=== PATIENT | female | born 1995 | race Caucasian/White ===

== ENCOUNTER 2018-06-12 22:48 | Emergency (ER) | payer OTHER ==
[2018-06-12] MEDS: ONDANSETRON (ODT) 4 MG TAB ODT (23:14)
[2018-06-12 23:23] LABS: ADD MAN DIFF? NO
[2018-06-12 23:26] LABS: BASOPHILS % 0.3 % (0.0-2.0); EOSINOPHILS # 0.1 10^3/ul (0.0-0.5); EOSINOPHILS % 0.8 % (0.0-7.0); HEMATOCRIT 40.2 % (37.0-47.0); HEMOGLOBIN 13.7 g/dl (12.0-16.0); LYMPHOCYTES # 2.4 10^3/ul (0.8-2.9); LYMPHOCYTES % 19.6 % (15.0-51.0); MEAN CORPUSCULAR HGB CONC 34.1 g/dl (32.0-37.0); MEAN PLATELET VOLUME 10.4 fl (7.4-10.4); MONOCYTE # 0.9 10^3/ul (0.3-0.9); MONOCYTES % 7.2 % (0.0-11.0); NEUTROPHIL # 8.6 10^3/ul (1.6-7.5); NEUTROPHILS % 71.9 % (39.0-77.0); PLATELET COUNT 289 10^3/UL (140-415); RED BLOOD COUNT 4.57 10^6/ul (4.20-5.40); RED CELL DISTRIBUTION WIDTH 12.5 % (11.5-14.5)
[2018-06-12 23:31] LABS: ADD UMIC YES; UR ASCORBIC ACID NEGATIVE (NEGATIVE); UR BACTERIA FEW /HPF (NONE SEEN); UR BILIRUBIN (Dip) NEGATIVE (NEGATIVE); UR BLOOD (Dip) 1+ mg/dL (NEGATIVE); UR CLARITY SLIGHTLY CLOUDY (CLEAR); UR COLOR YELLOW (YELLOW); UR GLUCOSE (Dip) NEGATIVE (NEGATIVE); UR KETONES (Dip) TRACE mg/dL (NEGATIVE); UR LEUKOCYTE ESTERASE (Dip) 1+ Leu/ul (NEGATIVE); UR MUCUS MODERATE /HPF (NONE SEEN); UR NITRITE (Dip) NEGATIVE (NEGATIVE); UR RBC 8 /HPF (0-5); UR SQUAMOUS EPITHELIAL CELL MODERATE /HPF (FEW); UR TOTAL PROTEIN (Dip) 1+ mg/dl (NEGATIVE); UR UROBILINOGEN (Dip) 1+ mg/dL (NEGATIVE); UR WBC 2 /HPF (0-5)
[2018-06-12 23:53] LABS: ALANINE AMINOTRANSFERASE 16 IU/L (13-69); ALBUMIN 4.4 g/dl (3.3-4.9); ALBUMIN/GLOBULIN RATIO 1.22; ALKALINE PHOSPHATASE 71 IU/L (42-121); AMYLASE 87 U/L (11-123); ANION GAP 14 (5-13); ASPARTATE AMINO TRANSFERASE 26 IU/L (15-46); BILIRUBIN,INDIRECT 0.5 mg/dl (0-1.1); BILIRUBIN,TOTAL 0.5 mg/dl (0.2-1.3); BLOOD UREA NITROGEN 6 mg/dl (7-20); CALCIUM 9.4 mg/dl (8.4-10.2); CARBON DIOXIDE 22 mmol/L (21-31); CHLORIDE 107 mmol/L (97-110); CREATININE 0.66 mg/dl (0.44-1.00); Estimated GFR > 60 mL/min (>60); GLUCOSE 107 mg/dl (70-220); LIPASE 95 U/L (23-300); POTASSIUM 3.8 mmol/L (3.5-5.1); SODIUM 143 mmol/L (135-144)
[2018-06-13] MEDS: HYDROCODONE/APAP (10/325) TAB PO (00:34)
== END 2018-06-13 02:17 | disposition home or self-care (01) ==
LOC: FTE 06-13 02:17
DX: N39.0 Urinary tract infection, site not specified (principal)
CPT/HCPCS: 36415; 74176; 80053; 81001; 81025; 82150; 83690; 85025; 87086; 99284-25

== ENCOUNTER 2018-10-06 14:04 | Inpatient (IN) | payer OTHER ==
[2018-10-06] MEDS: SOD CHLORIDE 0.9% 1,000 ML IV (06:00)
[2018-10-06] MEDS: LACTATED RINGER'S 1,000 ML IV ×2 (06:00→18:21)
[~2018-10-06 14:04] MED LIST: CEFAZOLIN 2 GM/50 ML (PMX) 50 ML (FOR WT < 120 KG) IVPB; GLYCOPYRROLATE 0.4 MG INJ; NEOSTIGMINE 10 MG INJ
[2018-10-06] MEDS ORDERED: ROCURONIUM 50 MG INJ ×2 (14:10→16:48)
[2018-10-06] MEDS ORDERED: FENTAnyl 50 MCG/ML VIAL ×2 (14:10→16:51)
[2018-10-06] MEDS ORDERED: MIDAZOLAM 1 MG/ML 2 ML INJ ×2 (14:10→16:48)
[2018-10-06] MEDS ORDERED: PROPOFOL 0 ML (14:10)
[2018-10-06 14:57] LABS: ADD MAN DIFF? NO
[2018-10-06 14:58] LABS: WHITE BLOOD COUNT 8.6 10^3/ul (4.8-10.8)
[2018-10-06 14:58] LABS: BASOPHILS % 0.5 % (0.0-2.0); EOSINOPHILS # 0.1 10^3/ul (0.0-0.5); EOSINOPHILS % 1.2 % (0.0-7.0); HEMATOCRIT 40.9 % (37.0-47.0); HEMOGLOBIN 13.6 g/dl (12.0-16.0); LYMPHOCYTES # 2.1 10^3/ul (0.8-2.9); MEAN CORPUSCULAR HEMOGLOBIN 30.3 pg (29.0-33.0); MEAN CORPUSCULAR HGB CONC 33.3 g/dl (32.0-37.0); MEAN CORPUSCULAR VOLUME 91.1 fl (82.0-101.0); MEAN PLATELET VOLUME 10.4 fl (7.4-10.4); MONOCYTE # 0.5 10^3/ul (0.3-0.9); MONOCYTES % 5.8 % (0.0-11.0); NEUTROPHIL # 5.7 10^3/ul (1.6-7.5); PLATELET COUNT 282 10^3/UL (140-415); RED BLOOD COUNT 4.49 10^6/ul (4.20-5.40); RED CELL DISTRIBUTION WIDTH 12.5 % (11.5-14.5)
[2018-10-06 15:17] LABS: INR 0.85; PROTIME 11.7 Sec (11.9-14.9); PT RATIO 0.9
[2018-10-06 15:18] LABS: PARTIAL THROMBOPLASTIN TIME 26.6 Sec (23.0-35.0)
[2018-10-06 15:19] LABS: ANION GAP 8 (5-13); BLOOD UREA NITROGEN 11 mg/dl (7-20); CALCIUM 9.2 mg/dl (8.4-10.2); CARBON DIOXIDE 26 mmol/L (21-31); CHLORIDE 106 mmol/L (97-110); CREATININE 0.59 mg/dl (0.44-1.00); GLUCOSE 85 mg/dl (70-220); PHOSPHORUS 3.2 mg/dl (2.5-4.9); SODIUM 140 mmol/L (135-144)
[2018-10-06] MEDS ORDERED: ROPIVACAINE 0.5 % 30 ML VIAL (16:48)
[2018-10-06] MEDS ORDERED: LIDOCAINE 2% (SDV) 5 ML INJ (16:48)
[2018-10-06] MEDS ORDERED: PROPOFOL 20 ML (16:48)
[2018-10-06] MEDS: CEFAZOLIN 2 GM/50 ML (PMX) 50 ML IVPB (17:16)
[2018-10-06] MEDS ORDERED: CEFAZOLIN 1 GM INJ (17:17)
[2018-10-06] MEDS ORDERED: DEXAMETHASONE 4 MG/ML 5 ML INJ (17:18)
[2018-10-06] MEDS ORDERED: FAMOTIDINE 20 MG INJ (17:18)
[2018-10-06] MEDS ORDERED: HYDROmorphONE 2 MG/ML SYG (17:18)
[2018-10-06] MEDS ORDERED: ONDANSETRON 4 MG INJ (17:18)
[2018-10-06] MEDS: BUPIVACAINE 0.5%/EPI (SDV) 30 ML INJ (17:25)
[2018-10-06] MEDS ORDERED: HYDROmorphONE 1 MG/5 ML IV SYRINGE IV ×3 (18:00)
[2018-10-06] MEDS ORDERED: DIPHENHYDRAMINE 50 MG INJ IV ×2 (18:00)
[2018-10-06] MEDS ORDERED: HYDROmorphONE 0.5 MG/0.5 ML SYG IV ×2 (18:00)
[2018-10-06] MEDS ORDERED: FENTAnyl 50 MCG/ML VIAL IV ×3 (18:00)
[2018-10-06] MEDS ORDERED: ONDANSETRON 4 MG INJ IV (18:00)
[2018-10-06] MEDS ORDERED: NALOXONE (0.4 MG/ML) INJ IV (18:00)
[2018-10-06] MEDS ORDERED: PROCHLORPERAZINE 10 MG INJ IV (18:00)
[2018-10-06] MEDS ORDERED: KETOROLAC 30 MG INJ (18:16)
[2018-10-06] MEDS: ONDANSETRON 4 MG INJ IV (18:54)
[2018-10-06] MEDS: MEPERIDINE 25 MG INJ IV (18:55)
[2018-10-06] MEDS: KETOROLAC 30 MG INJ IM (18:57)
[2018-10-06] MEDS: KETOROLAC 60 MG INJ IM (18:57)
[2018-10-06] MEDS: BUTORPHANOL 2 MG INJ IM (18:59)
[2018-10-06] MEDS: HYDROmorphONE 0.2 MG/ML PCA IV (19:15)
[2018-10-07] MEDS: LACTATED RINGER'S 1,000 ML IV ×5 (04:21→19:13)
[2018-10-07] MEDS: SOD CHLORIDE 0.9% 1,000 ML IV (06:00)
[2018-10-07] MEDS ORDERED: PROPOFOL 200 MG INJ (07:00)
[2018-10-07] MEDS: KETOROLAC 30 MG INJ IV (07:30)
[2018-10-07] MEDS: HYDROmorphONE 0.2 MG/ML PCA IV ×2 (07:55→15:42)
[2018-10-07] MEDS: ONDANSETRON 4 MG INJ IV ×3 (08:39→20:52)
[2018-10-07] MEDS ORDERED: OXYCODONE/ACETAMINOPHEN (5/325) TAB PO (09:30)
[2018-10-07] MEDS ORDERED: HYDROCODONE/APAP (10/325) TAB PO (09:30)
[2018-10-07 10:15] LABS: ADD MAN DIFF? NO
[2018-10-07 10:15] LABS: WHITE BLOOD COUNT 20.5 10^3/ul (4.8-10.8)
[2018-10-07 10:16] LABS: ABNORMAL IP MESSAGE 1; BASOPHILS % 0.2 % (0.0-2.0); HEMATOCRIT 38.4 % (37.0-47.0); HEMOGLOBIN 12.9 g/dl (12.0-16.0); LYMPHOCYTES # 1.2 10^3/ul (0.8-2.9); LYMPHOCYTES % 6.1 % (15.0-51.0); MEAN CORPUSCULAR HEMOGLOBIN 30.4 pg (29.0-33.0); MEAN CORPUSCULAR HGB CONC 33.6 g/dl (32.0-37.0); MEAN CORPUSCULAR VOLUME 90.6 fl (82.0-101.0); MEAN PLATELET VOLUME 10.5 fl (7.4-10.4); MONOCYTE # 1.6 10^3/ul (0.3-0.9); MONOCYTES % 7.8 % (0.0-11.0); NEUTROPHIL # 17.4 10^3/ul (1.6-7.5); NEUTROPHILS % 85.1 % (39.0-77.0); PLATELET COUNT 267 10^3/UL (140-415); RED BLOOD COUNT 4.24 10^6/ul (4.20-5.40); RED CELL DISTRIBUTION WIDTH 12.3 % (11.5-14.5)
[2018-10-07] MEDS: SENNA TAB PO ×2 (10:18→20:51)
[2018-10-07] MEDS: IBUPROFEN 600 MG TAB PO ×3 (10:18→20:52)
[2018-10-07 10:21] LABS: POSITIVE DIFF @See below
[2018-10-07] MEDS: BISACODYL 10 MG SUPP PR (11:11)
[2018-10-07] MEDS: CLINDAMYCIN 300 MG CAP PO ×3 (11:11→20:52)
[2018-10-07] MEDS: CEFAZOLIN 2 GM/50 ML (PMX) 50 ML IVPB ×2 (11:11→21:20)
[2018-10-07] MEDS: CIPROFLOXACIN 500 MG TAB PO (18:16)
[2018-10-07] MEDS: HYDROCODONE/APAP (5/325) TAB PO (18:16)
[2018-10-07] MEDS ORDERED: CEFAZOLIN 2 GM/50 ML (PMX) 50 ML IVPB ×2 (19:00→22:00)
[2018-10-08] MEDS: CLINDAMYCIN 300 MG CAP PO ×4 (03:19→20:29)
[2018-10-08] MEDS: IBUPROFEN 600 MG TAB PO ×4 (03:20→20:30)
[2018-10-08] MEDS: LACTATED RINGER'S 1,000 ML IV ×3 (05:13→20:32)
[2018-10-08 05:24] LABS: ADD MAN DIFF? NO
[2018-10-08 05:32] LABS: WHITE BLOOD COUNT 11.6 10^3/ul (4.8-10.8)
[2018-10-08 05:32] LABS: BASOPHILS % 0.3 % (0.0-2.0); EOSINOPHILS # 0.1 10^3/ul (0.0-0.5); EOSINOPHILS % 0.5 % (0.0-7.0); HEMATOCRIT 35.2 % (37.0-47.0); HEMOGLOBIN 11.7 g/dl (12.0-16.0); LYMPHOCYTES # 2.7 10^3/ul (0.8-2.9); LYMPHOCYTES % 23.4 % (15.0-51.0); MEAN CORPUSCULAR HEMOGLOBIN 30.3 pg (29.0-33.0); MEAN CORPUSCULAR HGB CONC 33.2 g/dl (32.0-37.0); MEAN CORPUSCULAR VOLUME 91.2 fl (82.0-101.0); NEUTROPHIL # 7.7 10^3/ul (1.6-7.5); NEUTROPHILS % 66.3 % (39.0-77.0); PLATELET COUNT 231 10^3/UL (140-415); RED BLOOD COUNT 3.86 10^6/ul (4.20-5.40); RED CELL DISTRIBUTION WIDTH 12.5 % (11.5-14.5)
[2018-10-08] MEDS: CIPROFLOXACIN 500 MG TAB PO ×2 (05:40→17:22)
[2018-10-08] MEDS: MAGNESIUM HYDROXIDE 30ML CUP PO (05:41)
[2018-10-08] MEDS: CEFAZOLIN 2 GM/50 ML (PMX) 50 ML IVPB (05:41)
[2018-10-08] MEDS: HYDROCODONE/APAP (5/325) TAB PO ×2 (09:08→13:46)
[2018-10-08] MEDS: SENNA TAB PO ×2 (09:09→20:28)
[2018-10-08] MEDS: BISACODYL 10 MG SUPP PR (17:22)
[2018-10-08] MEDS: OXYCODONE/ACETAMINOPHEN (5/325) TAB PO ×2 (17:28→21:20)
[2018-10-09] MEDS: OXYCODONE/ACETAMINOPHEN (5/325) TAB PO ×4 (01:24→17:08)
[2018-10-09] MEDS: CLINDAMYCIN 300 MG CAP PO ×3 (03:18→15:19)
[2018-10-09] MEDS: IBUPROFEN 600 MG TAB PO ×3 (03:19→15:19)
[2018-10-09 05:22] LABS: ADD MAN DIFF? NO
[2018-10-09 05:24] LABS: WHITE BLOOD COUNT 8.8 10^3/ul (4.8-10.8)
[2018-10-09 05:24] LABS: BASOPHILS % 0.3 % (0.0-2.0); EOSINOPHILS # 0.2 10^3/ul (0.0-0.5); EOSINOPHILS % 2.5 % (0.0-7.0); HEMOGLOBIN 12.1 g/dl (12.0-16.0); LYMPHOCYTES # 2.5 10^3/ul (0.8-2.9); LYMPHOCYTES % 27.7 % (15.0-51.0); MEAN CORPUSCULAR HEMOGLOBIN 30.1 pg (29.0-33.0); MEAN CORPUSCULAR HGB CONC 32.7 g/dl (32.0-37.0); MEAN PLATELET VOLUME 10.7 fl (7.4-10.4); MONOCYTE # 0.9 10^3/ul (0.3-0.9); MONOCYTES % 10.1 % (0.0-11.0); NEUTROPHIL # 5.2 10^3/ul (1.6-7.5); NEUTROPHILS % 59.1 % (39.0-77.0); PLATELET COUNT 241 10^3/UL (140-415); RED BLOOD COUNT 4.02 10^6/ul (4.20-5.40); RED CELL DISTRIBUTION WIDTH 12.8 % (11.5-14.5)
[2018-10-09] MEDS: CIPROFLOXACIN 500 MG TAB PO ×2 (05:25→17:37)
[2018-10-09] MEDS: LACTATED RINGER'S 1,000 ML IV ×2 (05:28→16:51)
[2018-10-09] MEDS: SENNA TAB PO (09:04)
[2018-10-09] MEDS: HYDROCODONE/APAP (5/325) TAB PO (10:48)
[2018-10-09] MEDS: ONDANSETRON 4 MG INJ IV (11:46)
[2018-10-09] MEDS ORDERED: ACETAMINOPHEN 325 MG TAB PO (18:30)
== END 2018-10-09 19:20 | disposition home or self-care (01) | DRG 743 ==
LOC: SDS 14:04 → REC 18:53 → MS1 20:40
PROC: 0UB00ZZ Excision of Right Ovary, Open Approach (ICD-10-PCS; principal; 2018-10-06 16:00)
DX: D27.0 Benign neoplasm of right ovary (principal); E66.9 Obesity, unspecified; Z68.32 Body mass index [BMI] 32.0-32.9, adult; F17.200 Nicotine dependence, unspecified, uncomplicated
CPT/HCPCS: 80069; 84703; 85025; 85610; 85730; 88305

== ENCOUNTER 2018-11-15 16:44 | Emergency (ER) | payer SELFPAY, OTHER ==
[2018-11-15] MEDS: SOD CHLORIDE 0.9% 1,000 ML IV (17:53)
[2018-11-15] MEDS: FAMOTIDINE 20 MG INJ IV (17:54)
[2018-11-15] MEDS: ONDANSETRON 4 MG INJ IV (17:54)
[2018-11-15] MEDS: ACETAMINOPHEN 325 MG TAB PO (17:54)
[2018-11-15] MEDS: IBUPROFEN 200 MG TAB PO (17:54)
[2018-11-15 17:57] LABS: ADD UMIC YES; UR ASCORBIC ACID NEGATIVE (NEGATIVE); UR BILIRUBIN (Dip) NEGATIVE (NEGATIVE); UR BLOOD (Dip) 1+ mg/dL (NEGATIVE); UR CLARITY SLIGHTLY CLOUDY (CLEAR); UR COLOR YELLOW (YELLOW); UR GLUCOSE (Dip) NEGATIVE (NEGATIVE); UR KETONES (Dip) 2+ mg/dL (NEGATIVE); UR LEUKOCYTE ESTERASE (Dip) 2+ Leu/ul (NEGATIVE); UR MUCUS FEW /HPF (NONE SEEN); UR NITRITE (Dip) NEGATIVE (NEGATIVE); UR RBC 9 /HPF (0-5); UR SPECIFIC GRAVITY (Dip) 1.028 (1.003-1.030); UR SQUAMOUS EPITHELIAL CELL MODERATE /HPF (FEW); UR TOTAL PROTEIN (Dip) NEGATIVE (NEGATIVE); UR UROBILINOGEN (Dip) NEGATIVE (NEGATIVE); UR WBC 1 /HPF (0-5)
[2018-11-15 18:04] LABS: ADD MAN DIFF? NO
[2018-11-15 18:10] LABS: WHITE BLOOD COUNT 13.7 10^3/ul (4.8-10.8)
[2018-11-15 18:10] LABS: BASOPHILS % 0.2 % (0.0-2.0); EOSINOPHILS # 0.1 10^3/ul (0.0-0.5); EOSINOPHILS % 0.6 % (0.0-7.0); HEMATOCRIT 47.3 % (37.0-47.0); LYMPHOCYTES # 0.6 10^3/ul (0.8-2.9); LYMPHOCYTES % 4.4 % (15.0-51.0); MEAN CORPUSCULAR HEMOGLOBIN 30.2 pg (29.0-33.0); MEAN CORPUSCULAR HGB CONC 33.8 g/dl (32.0-37.0); MEAN CORPUSCULAR VOLUME 89.4 fl (82.0-101.0); MEAN PLATELET VOLUME 10.3 fl (7.4-10.4); MONOCYTE # 0.6 10^3/ul (0.3-0.9); MONOCYTES % 4.4 % (0.0-11.0); NEUTROPHIL # 12.3 10^3/ul (1.6-7.5); NEUTROPHILS % 89.7 % (39.0-77.0); PLATELET COUNT 293 10^3/UL (140-415); RED BLOOD COUNT 5.29 10^6/ul (4.20-5.40); RED CELL DISTRIBUTION WIDTH 12.9 % (11.5-14.5)
[2018-11-15 19:02] LABS: ALANINE AMINOTRANSFERASE 24 IU/L (13-69); ALBUMIN 4.3 g/dl (3.3-4.9); ALBUMIN/GLOBULIN RATIO 1.34; ALKALINE PHOSPHATASE 123 IU/L (42-121); ANION GAP 12 (5-13); ASPARTATE AMINO TRANSFERASE 28 IU/L (15-46); BILIRUBIN,INDIRECT 1.2 mg/dl (0-1.1); BILIRUBIN,TOTAL 1.2 mg/dl (0.2-1.3); BLOOD UREA NITROGEN 17 mg/dl (7-20); CALCIUM 9.5 mg/dl (8.4-10.2); CARBON DIOXIDE 25 mmol/L (21-31); CHLORIDE 103 mmol/L (97-110); CREATININE 0.64 mg/dl (0.44-1.00); Estimated GFR > 60 mL/min (>60); GLUCOSE 108 mg/dl (70-220); LIPASE 52 U/L (23-300); POTASSIUM 4.2 mmol/L (3.5-5.1); SODIUM 140 mmol/L (135-144); TOTAL PROTEIN 7.5 g/dl (6.1-8.1)
[2018-11-15] MEDS: ONDANSETRON (ODT) 4 MG TAB ODT (19:31)
[2018-11-15] MEDS: HYDROCODONE/APAP (5/325) TAB PO (19:31)
[2018-11-15] MEDS: CIPROFLOXACIN 250 MG TAB PO (19:36)
== END 2018-11-15 19:46 | disposition home or self-care (01) ==
LOC: FTE 16:44
DX: K52.9 Noninfective gastroenteritis and colitis, unspecified (principal); N39.0 Urinary tract infection, site not specified; F17.210 Nicotine dependence, cigarettes, uncomplicated
CPT/HCPCS: 36415; 80053; 81001; 83690; 84703; 85025; 96361; 96374; 96375; 99284-25

== ENCOUNTER 2019-03-13 13:36 | Emergency (ER) | payer OTHER ==
[2019-03-13] MEDS: ONDANSETRON 4 MG INJ IV (15:38)
[2019-03-13] MEDS: morphine 2 MG INJ IV (15:38)
[2019-03-13] MEDS: SOD CHLORIDE 0.9% 1,000 ML IV (15:39)
[2019-03-13 15:42] LABS: ADD MAN DIFF? NO
[2019-03-13 15:46] LABS: BASOPHIL # 0.1 10^3/ul (0.0-0.1); BASOPHILS % 0.6 % (0.0-2.0); EOSINOPHILS # 0.1 10^3/ul (0.0-0.5); EOSINOPHILS % 0.8 % (0.0-7.0); HEMATOCRIT 45.4 % (37.0-47.0); HEMOGLOBIN 15.1 g/dl (12.0-16.0); LYMPHOCYTES # 2.4 10^3/ul (0.8-2.9); LYMPHOCYTES % 27.3 % (15.0-51.0); MEAN CORPUSCULAR HEMOGLOBIN 30.9 pg (29.0-33.0); MEAN CORPUSCULAR HGB CONC 33.3 g/dl (32.0-37.0); MEAN CORPUSCULAR VOLUME 92.8 fl (82.0-101.0); MEAN PLATELET VOLUME 10.4 fl (7.4-10.4); MONOCYTE # 0.6 10^3/ul (0.3-0.9); MONOCYTES % 6.5 % (0.0-11.0); NEUTROPHIL # 5.8 10^3/ul (1.6-7.5); NEUTROPHILS % 64.4 % (39.0-77.0); PLATELET COUNT 296 10^3/UL (140-415); RED BLOOD COUNT 4.89 10^6/ul (4.20-5.40); RED CELL DISTRIBUTION WIDTH 12.9 % (11.5-14.5)
[2019-03-13 15:46] LABS: WHITE BLOOD COUNT 8.9 10^3/ul (4.8-10.8)
[2019-03-13 16:07] LABS: ADD UMIC YES; ALANINE AMINOTRANSFERASE 21 IU/L (13-69); ALBUMIN 4.3 g/dl (3.3-4.9); ALBUMIN/GLOBULIN RATIO 1.16; ALKALINE PHOSPHATASE 89 IU/L (42-121); ANION GAP 9 (5-13); ASPARTATE AMINO TRANSFERASE 30 IU/L (15-46); BILIRUBIN,INDIRECT 0.7 mg/dl (0-1.1); BILIRUBIN,TOTAL 0.7 mg/dl (0.2-1.3); BLOOD UREA NITROGEN 9 mg/dl (7-20); CALCIUM 9.7 mg/dl (8.4-10.2); CARBON DIOXIDE 28 mmol/L (21-31); CHLORIDE 104 mmol/L (97-110); CREATININE 0.68 mg/dl (0.44-1.00); Estimated GFR > 60 mL/min (>60); GLUCOSE 93 mg/dl (70-220); LIPASE 64 U/L (23-300); SODIUM 141 mmol/L (135-144); UR ASCORBIC ACID NEGATIVE (NEGATIVE); UR BILIRUBIN (Dip) NEGATIVE (NEGATIVE); UR BLOOD (Dip) NEGATIVE (NEGATIVE); UR BUDDING YEAST MANY /HPF (NONE SEEN); UR CLARITY CLOUDY (CLEAR); UR COLOR YELLOW (YELLOW); UR GLUCOSE (Dip) NEGATIVE (NEGATIVE); UR KETONES (Dip) NEGATIVE (NEGATIVE); UR LEUKOCYTE ESTERASE (Dip) NEGATIVE Leu/ul (NEGATIVE); UR MUCUS FEW /HPF (NONE SEEN); UR NITRITE (Dip) NEGATIVE (NEGATIVE); UR RBC 4 /HPF (0-5); UR SPECIFIC GRAVITY (Dip) 1.019 (1.003-1.030); UR SQUAMOUS EPITHELIAL CELL FEW /HPF (FEW); UR TOTAL PROTEIN (Dip) NEGATIVE (NEGATIVE); UR UROBILINOGEN (Dip) NEGATIVE (NEGATIVE); UR WBC 0 /HPF (0-5)
== END 2019-03-13 17:13 | disposition home or self-care (01) ==
LOC: FTE 13:36
DX: R10.2 Pelvic and perineal pain (principal); F17.210 Nicotine dependence, cigarettes, uncomplicated
CPT/HCPCS: 36415; 76856; 80053; 81001; 81025; 83690; 84702; 85025; 96361; 96374; 96375; 99285-25